=== PATIENT | female | born 1980 | race Caucasian/White ===

== ENCOUNTER 2018-04-08 10:48 | Emergency (ER) | payer MEDICAID ==
[~2018-04-08] VITALS: Ht 175.3 cm; Wt 84.2 kg
[2018-04-08 12:33] VITALS: BP 110/68
== END 2018-04-08 12:35 | disposition home or self-care (01) ==
LOC: ED 12:25
DX: F41.1 Generalized anxiety disorder (principal); F20.9 Schizophrenia, unspecified; J44.9 Chronic obstructive pulmonary disease, unspecified; F32.9 Major depressive disorder, single episode, unspecified
CPT/HCPCS: 99284

== ENCOUNTER 2018-12-25 10:12 | Emergency (ER) | payer MEDICAID ==
[~2018-12-25] VITALS: Ht 175.3 cm; Wt 77.0 kg
[2018-12-25 10:31] VITALS: BP 120/88
== END 2018-12-25 12:06 | disposition home or self-care (01) ==
LOC: ED 12:00
DX: S61.211A Laceration without foreign body of left index finger without damage to nail, initial encounter (principal); Z87.891 Personal history of nicotine dependence; X58.XXXA Exposure to other specified factors, initial encounter; Y93.89 Activity, other specified; Y92.009 Unspecified place in unspecified non-institutional (private) residence as the place of occurrence of the external cause; Y99.8 Other external cause status
CPT/HCPCS: 12001; 90471; 90715; 99283

== ENCOUNTER 2019-01-01 09:10 | Emergency (ER) | payer MEDICAID ==
[~2019-01-01] VITALS: Ht 175.3 cm; Wt 78.0 kg
[2019-01-01 09:22] VITALS: BP 114/72
--- NOTE | 2019-01-01 09:36 | NUR ---
FIRST CONTACT WITH PATIENT, PATIENT SEEN 1 WEEK AGO FOR LAC TO LT 2ND FINGER WHILE COOKING, STICHES PLACED, PATIENT REPORTS PAIN AND "OOZING FROM INCISION" AND PAIN. MD AT BEDSIDE, CALL LIGHT WITHIN REACH.
[2019-01-01] MEDS ORDERED: NAPR220C2 PO (09:42)
[2019-01-01] MEDS ORDERED: CEFAZOLIN 1,000 MG ONE (09:44)
[2019-01-01] MEDS ORDERED: LIDOCAINE-MPF 1%, 5ML ONE (09:44)
[2019-01-01] MEDS ORDERED: BUPIVACAINE 0.25% ONE (09:45)
[2019-01-01] MEDS ORDERED: LIDOCAINE 1%, 10ML INFIL ONE (10:00)
[2019-01-01] MEDS ORDERED: BUPIVACAINE 0.25% INFIL ONE (10:00)
[2019-01-01] MEDS ORDERED: CEFAZOLIN 1,000 MG IM ONE (10:00)
[2019-01-01] MEDS ORDERED: NEOSPORIN OINT. PKT 1 PACKET ONE (10:14)
--- NOTE | 2019-01-01 10:23 | NUR ---
Patient/Caregiver given discharge instructions and they have confirmed that they understand the instructions. Patient ambulatory with steady gait.
== END 2019-01-01 10:24 | disposition home or self-care (01) ==
LOC: ED 10:05
DX: S61.211D Laceration without foreign body of left index finger without damage to nail, subsequent encounter (principal); L03.012 Cellulitis of left finger; J44.9 Chronic obstructive pulmonary disease, unspecified; F20.9 Schizophrenia, unspecified; F41.0 Panic disorder [episodic paroxysmal anxiety]; F17.200 Nicotine dependence, unspecified, uncomplicated; Z98.51 Tubal ligation status; X58.XXXD Exposure to other specified factors, subsequent encounter
CPT/HCPCS: 96372; 99283; J0690; J3490

== ENCOUNTER 2019-10-14 19:22 | Emergency (ER) | payer MEDICAID ==
[~2019-10-14] VITALS: Ht 175.3 cm; Wt 88.5 kg
[~2019-10-14 19:22] MED LIST: NAPR220C2 PO
[2019-10-14 19:23] VITALS: BP 133/88
[2019-10-14] MEDS ORDERED: KETOROLAC 30 MG/1 ML ONE (19:46)
[2019-10-14] MEDS ORDERED: DIAZEPAM 5 MG TABLET ONE (19:46)
[2019-10-14] MEDS ORDERED: KETOROLAC 30 MG/1 ML IM ONE (20:00)
[2019-10-14] MEDS ORDERED: DIAZEPAM 5 MG TABLET PO ONE (20:00)
--- NOTE | 2019-10-14 20:10 | NUR ---
PATIENT TO ROOM 11 PER WHEELCHAIR. PT PRESENTS TO ED TODAY WITH C/O LOWER BACK PAIN. PT HAS BACK PAIN ON/OFF FOR THE LAST 3 WEEKS, AND TODAY THE PAIN WAS SO SEVERE THAT IT WOKE HER UP FROM SLEEP THIS MORNING. PAIN HAS BEEN INTENSE ALL DAY, AND TYLENOL AND IBUPROFEN ARE NOT WORKING. MOTHER DROVE PATIENT TO ED.
--- NOTE | 2019-10-14 20:16 | NUR ---
TASK RN ADMINISTERED PAIN MEDICATIONS TO PATIENT.
--- NOTE | 2019-10-14 20:58 | NUR ---
DISCHARGE INSTRUCTIONS GIVEN TO PATIENT. PT VERBALIZES UNDERSTANDING OF ALL INSTRUCTIONS AND FOLLOW UP. PT GIVEN 2 PRESCRIPTIONS. RN DISCUSSES ALL MEDICATIONS TO INCLUDE NAMES, USE, DOSE, RATIONALE, DISPOSAL AND SIDE EFFECTS. PT VERBALIZES UNDERSTANDING OF ALL MEDICATIONS AND FOLLOW UP. PT AMBULATED OUT OF ED PER PEDIS WITH SLOW STEADY GAIT.
== END 2019-10-14 21:02 | disposition home or self-care (01) ==
LOC: ED 20:46
DX: S39.012A Strain of muscle, fascia and tendon of lower back, initial encounter (principal); X58.XXXA Exposure to other specified factors, initial encounter; Y93.89 Activity, other specified; Y92.89 Other specified places as the place of occurrence of the external cause; Y99.8 Other external cause status
CPT/HCPCS: 96372; 99283; J1885

== ENCOUNTER 2020-01-19 14:39 | Emergency (ER) | payer MEDICAID ==
[~2020-01-19] VITALS: Ht 175.3 cm; Wt 84.2 kg
--- NOTE | 2020-01-19 14:57 | NUR ---
LUIS FELIPE RN NOTE: URINE KIT GIVEN TO PT FOR CLEAN CATCH URINE COLLECTION, PT EDUCATED REGARDING PROPER TECHNIQUE
[2020-01-19 15:58] LABS: MICROSCOPIC INDICATED
[2020-01-19 16:07] LABS: BASOPHILS # (AUTO) 0.02 x10^3/uL (0-0.1); BASOPHILS % (AUTO) 0 % (0-1); EOSINOPHILS # (AUTO) 0.05 x10^3/uL (0-0.4); EOSINOPHILS % (AUTO) 0 % (1-7); LYMPHOCYTES # (AUTO) 1.72 x10^3/uL (1-3.4); LYMPHOCYTES % (AUTO) 13 % (22-44); MD NO; MEAN CORPUSCULAR HEMOGLOBIN 33.6 pg (27.0-34.8); MEAN CORPUSCULAR HGB CONC 33.9 g/dL (32.4-35.8); MEAN CORPUSCULAR VOLUME 99.2 fL (80-100); MEAN PLATELET VOLUME 8.9 fL (7.4-10.4); MONOCYTES % (AUTO) 6 % (2-9); NEUTROPHILS # (AUTO) 10.49 x10^3/uL (1.8-6.8); NEUTROPHILS % (AUTO) 80 % (42-75); PLATELET COUNT 276 x10^3/uL (130-400); RED BLOOD COUNT 4.68 x10^6/uL (3.82-5.3); RED CELL DISTRIBUTION WIDTH 15.9 % (9.6-15.2)
[2020-01-19 16:17] LABS: ALBUMIN 3.5 g/dL (3.4-5.0); ANION GAP 7 mmol/L (5-15); CALCIUM 8.6 mg/dL (8.5-10.1); CHLORIDE 110 mmol/L (98-107)
[2020-01-19 16:23] LABS: ALANINE AMINOTRANSFERASE 32 U/L (12-78); ALKALINE PHOSPHATASE 78 U/L (45-117); BILIRUBIN,TOTAL 0.4 mg/dL (0.2-1.0); CREATININE 0.75 mg/dL (0.55-1.02); TOTAL PROTEIN 6.9 g/dL (6.4-8.2)
[2020-01-19 16:38] VITALS: BP 151/112
[2020-01-19] MEDS ORDERED: IBUPROFEN 800 MG TABLET ONE (16:57)
[2020-01-19] MEDS ORDERED: ONDANSETRON ODT 4 MG ONE (16:57)
[2020-01-19] MEDS ORDERED: ONDANSETRON ODT 4 MG PO ONE (17:00)
[2020-01-19] MEDS ORDERED: IBUPROFEN 800 MG TABLET PO ONE (17:00)
[2020-01-19] MEDS ORDERED: PHENAZOPYRIDINE 200 MG TABLET ONE (17:06)
[2020-01-19] MEDS ORDERED: PHENAZOPYRIDINE 200 MG TABLET PO ONE (17:30)
== END 2020-01-19 17:11 | disposition home or self-care (01) ==
LOC: ED 16:45
DX: N10 Acute pyelonephritis (principal); R10.30 Lower abdominal pain, unspecified; J44.9 Chronic obstructive pulmonary disease, unspecified; F17.200 Nicotine dependence, unspecified, uncomplicated; Z98.51 Tubal ligation status
CPT/HCPCS: 36415; 80053; 81001; 84703; 85025; 87077; 87086; 99284; Q0162; 87186

== ENCOUNTER 2020-05-21 07:24 | Emergency (ER) | payer MEDICAID ==
[~2020-05-21] VITALS: Ht 175.3 cm; Wt 86.0 kg
[2020-05-21 07:35] VITALS: BP 168/63
--- NOTE | 2020-05-21 08:07 | NUR ---
WASTE OIL PUMPER: PT TO ROOM FROM LOBBY VIA W/C
[2020-05-21] MEDS ORDERED: HYDROcodone/APAP 10/325 MG TABLET ONE (08:28)
[2020-05-21] MEDS ORDERED: HYDROcodone/APAP 10/325 MG TABLET PO ONE (08:30)
== END 2020-05-21 08:48 | disposition home or self-care (01) ==
LOC: ED 08:31
DX: S80.12XA Contusion of left lower leg, initial encounter (principal); J44.9 Chronic obstructive pulmonary disease, unspecified; F17.200 Nicotine dependence, unspecified, uncomplicated; X50.0XXA Overexertion from strenuous movement or load, initial encounter; Y93.89 Activity, other specified; Y92.009 Unspecified place in unspecified non-institutional (private) residence as the place of occurrence of the external cause; Y99.8 Other external cause status
CPT/HCPCS: 29505; 99283